=== PATIENT | male | born 1940 | race Hispanic/Latino ===

== ENCOUNTER 2018-04-20 21:08 | Inpatient (IN) | payer MEDICARE ==
[~2018-04-20] VITALS: Ht 172.7 cm; Wt 127.1 kg
[2018-04-20 21:55] LABS: BASOPHILS % (AUTO) 1.3 % (0.0-5.0); HEMATOCRIT 45.7 % (42-54); LYMPHOCYTES % (AUTO) 16.9 % (21.0-51.0); MEAN CORPUSCULAR HEMOGLOBIN 32.3 pg (27.0-33.0); MEAN CORPUSCULAR VOLUME 95.1 fL (79-99); MONOCYTES % (AUTO) 6.2 % (3.0-13.0); NEUTROPHILS % (AUTO) 74.6 % (40.0-77.0); PLATELET COUNT (AUTO) 154 K/uL (130-400); RED CELL DISTRIBUTION WIDTH 14.6 % (11.0-15.5)
[2018-04-20 22:08] LABS: INR 0.95 (0.85-1.15); PARTIAL THROMBOPLASTIN TIME 26.3 SEC (26.3-35.5)
[2018-04-20 22:10] LABS: CREATINE KINASE, TOTAL 97 U/L (21-232); LIPASE 110 U/L (114-286)
[2018-04-20 22:21] LABS: CRP QUANTITATIVE < 2.00 mg/L (0.00-9.0)
[2018-04-20 22:33] LABS: B-TYPE NATRIURETIC PEPTIDE 15 pg/mL (0-100)
[2018-04-20 23:11] LABS: ERYTHROCYTE SEDIMENTATION RATE 5 MM/HR (0-20)
[2018-04-20] MEDS ORDERED: MORPHINE SULFATE 2 MG/ML 1ML SYG IV PRN (23:30)
[2018-04-20] MEDS ORDERED: ACETAMINOPHEN 325 MG TAB PO PRN (23:30)
[2018-04-20] MEDS ORDERED: ONDANSETRON HCL 4 MG/2 ML VIAL IV PRN (23:30)
[2018-04-21] VITALS (8 sets, daily range): BP systolic 127–149; BP diastolic 59–71
--- NOTE | 2018-04-21 07:33 | NUR ---
ER ADMIT PATIENT RECEIVED FROM ER VIA STRETCHER WITH FAMILY PRESENT. NO OBVIOUS SIGNS OF DISTRESS NOTED. DENIES DIZZINESS OR LIGHTHEADEDNESS. ORIENTED TO ROOM AND USE OF CALL LIGHT. BED IS IN LOWEST POSITION AND LOCKED. IV IS PATENT AND FLUSHING WELL. WILL PLACE ON RESIDENTIAL INSTALLER ORDERED.
[2018-04-21] MEDS: FAMOTIDINE/PF 20 MG/2 ML VIAL IV SCH ×2 (08:27→20:25)
--- NOTE | 2018-04-21 11:30 | NUR ---
TO MRI PATIENT TRANSPORTED TO MRI VIA WHEELCHAIR IN STABLE CONDITION.
--- NOTE | 2018-04-21 12:00 | NUR ---
BACK FROM MRI PATIENT RETURNED FROM MRI VIA WHEELCHAIR IN STABLE CONDITION. DR. BIMAL SMITH HERE TO SEE PATIENT.
[2018-04-21] MEDS ORDERED: METF-444 PO (17:05)
[2018-04-21] MEDS ORDERED: PRAV20TA4 PO (18:06)
[2018-04-21] MEDS: ATORVASTATIN CALCIUM 10 MG TABLET PO SCH (20:25)
[2018-04-21] MEDS: INSULIN HUMULIN R 100 UNIT/ML 3ML SQ SCH (20:25)
[2018-04-22 04:00] VITALS: BP 136/72
[2018-04-22 06:08] LABS: BASOPHILS % (AUTO) 0.7 % (0.0-5.0); HEMATOCRIT 43.8 % (42-54); LYMPHOCYTES % (AUTO) 32.4 % (21.0-51.0); MEAN CORPUSCULAR HEMOGLOBIN 32.4 pg (27.0-33.0); MEAN CORPUSCULAR HGB CONC 34.2 g/dL (32.0-36.0); MEAN CORPUSCULAR VOLUME 94.5 fL (79-99); MONOCYTES % (AUTO) 7.5 % (3.0-13.0); NEUTROPHILS % (AUTO) 58.4 % (40.0-77.0); PLATELET COUNT (AUTO) 155 K/uL (130-400); RED BLOOD CELL COUNT(AUTO) 4.63 MIL/uL (4.50-6.20); RED CELL DISTRIBUTION WIDTH 14.5 % (11.0-15.5); WHITE BLOOD COUNT (AUTO) 5.8 K/uL (4.8-10.8)
[2018-04-22 06:13] LABS: CREATININE 0.7 mg/dL (0.5-1.5)
[2018-04-22] MEDS: INSULIN HUMULIN R 100 UNIT/ML 3ML SQ SCH ×4 (06:34→21:00)
[2018-04-22 07:30] VITALS: BP 120/61
[2018-04-22] MEDS ORDERED: REGADENOSON 0.4 MG/5 ML PF SYG IVP SCH (07:30)
[2018-04-22] MEDS: FAMOTIDINE/PF 20 MG/2 ML VIAL IV SCH ×2 (08:44→22:07)
--- NOTE | 2018-04-22 10:00 | NUR ---
HOSPITALIST DR. TELLO IN TO SEE PATIENT. NEW ORDERS RECEIVED.
[2018-04-22 11:34] VITALS: BP 148/76
--- NOTE | 2018-04-22 12:39 | NUR ---
TO [facility]LE[facility]IC[facility] PATIENT TRANSPORTED TO ID FOR [facility]ISC[facility] VIA WHEELCHAIR IN STABLE CONDITION.
--- NOTE | 2018-04-22 13:51 | NUR ---
INITIAL: Met with pt and son Oj Ca this afternoon to discuss dcp. Pt sleeping and son answering questions. Prior to admission pt's 23yo grandson and 19yo granddtr were living w him. Pt is independent w ambulation and ADLs. Drives where needed. He does not have any DME or receive prior services. DCP is for pt to return back home. Will continue to follow and wait for Md recommendations. Addendum: 04/22/18 at 1355 by CARA TABARES CM Amended: Links added.
--- NOTE | 2018-04-22 14:25 | NUR ---
BACK FROM NE PATIENT RETURNED FROM NE S/P LEXISCAN STRESS TEST. HE IS IN STABLE CONDITION.
[2018-04-22 16:34] VITALS: BP 164/63
[2018-04-22 19:39] VITALS: BP 122/58
[2018-04-22] MEDS: ATORVASTATIN CALCIUM 10 MG TABLET PO SCH (22:07)
[2018-04-23] VITALS (12 sets, daily range): BP systolic 120–154; BP diastolic 56–84
[2018-04-23 05:52] LABS: HEMATOCRIT 48.2 % (42-54); MEAN CORPUSCULAR HEMOGLOBIN 31.5 pg (27.0-33.0); MEAN CORPUSCULAR HGB CONC 33.2 g/dL (32.0-36.0); MEAN CORPUSCULAR VOLUME 94.8 fL (79-99); NUCLEATED RED BLOOD CELLS 0.1 % (0.0-0.19); PLATELET COUNT (AUTO) 165 K/uL (130-400); RED BLOOD CELL COUNT(AUTO) 5.09 MIL/uL (4.50-6.20); RED CELL DISTRIBUTION WIDTH 14.6 % (11.0-15.5); WHITE BLOOD COUNT (AUTO) 7.2 K/uL (4.8-10.8)
[2018-04-23 06:00] LABS: INR 0.96 (0.85-1.15); PARTIAL THROMBOPLASTIN TIME 28.7 SEC (26.3-35.5); PROTHROMBIN TIME 10.1 SEC (9.6-11.6)
[2018-04-23 06:14] LABS: ALBUMIN 3.7 g/dL (3.5-5.0); BILIRUBIN,TOTAL 0.8 mg/dL (0.2-1.0); CREATININE 0.9 mg/dL (0.5-1.5); MAGNESIUM 1.9 mg/dL (1.80-2.40); POTASSIUM 3.6 mmol/L (3.5-5.1); TOTAL PROTEIN, SERUM 7.8 g/dL (6.0-8.3)
[2018-04-23] MEDS: INSULIN HUMULIN R 100 UNIT/ML 3ML SQ SCH (06:23)
[2018-04-23] MEDS ORDERED: LIDOCAINE HCL 2% 20ML ONE (07:58)
[2018-04-23] MEDS ORDERED: NITROGLYCERIN 5 MG/ML 10 ML VIAL IV ONE (07:58)
[2018-04-23] MEDS ORDERED: IOHEXOL-350 50ML VIAL IV ONE (07:58)
[2018-04-23] MEDS ORDERED: IOHEXOL 350 MG/ML 100ML INFUS..BTL IV ONE (08:01)
--- NOTE | 2018-04-23 08:15 | NUR ---
Pr. taken to lab clerk for left heart cath with Dr. Kaye, pt. left in stable condition via hospital bed.
[2018-04-23] MEDS ORDERED: MIDAZOLAM HCL 1 MG/ML 2ML VIAL ONE (08:48)
[2018-04-23] MEDS ORDERED: FENTANYL CITRATE PF 50 MCG/1 ML 2ML VIAL ONE (08:48)
[2018-04-23] MEDS ORDERED: SODIUM CHLORIDE 0.9% 1000ML 1,000 ML IV SCH (09:25)
--- NOTE | 2018-04-23 10:00 | NUR ---
Pt. back from heart cath in stable condition, D-stat to right groin dry and intact, site soft, pedal pulse positive with doppler. Inst. to lay flat for [address] Kaye came to to see pt and gave results to pt's dtr. stated if all is ok pt. can be discharged after 3pm today from his standpoint. F/U in 2-4 weeks.
[2018-04-23] MEDS: FAMOTIDINE/PF 20 MG/2 ML VIAL IV SCH (10:07)
== END 2018-04-23 16:44 | disposition home or self-care (01) | DRG 287 ==
LOC: EDH 21:08 → EDHIP 23:00 → OBSVTOIN 23:00 → 4AH 04-21 07:08
PROVIDERS: ADMIT Internal Medicine; ATTEND Internal Medicine
PROC: 4A023N7 Measurement of Cardiac Sampling and Pressure, Left Heart, Percutaneous Approach (ICD-10-PCS; principal; 2018-04-23)
PROC: B2111ZZ Fluoroscopy of Multiple Coronary Arteries using Low Osmolar Contrast (ICD-10-PCS; 2018-04-23)
PROC: B2151ZZ Fluoroscopy of Left Heart using Low Osmolar Contrast (ICD-10-PCS; 2018-04-23)
DX: R00.1 Bradycardia, unspecified (principal); Z68.41 Body mass index [BMI] 40.0-44.9, adult; I65.23 Occlusion and stenosis of bilateral carotid arteries; E66.01 Morbid (severe) obesity due to excess calories; I10 Essential (primary) hypertension; F17.210 Nicotine dependence, cigarettes, uncomplicated; E78.5 Hyperlipidemia, unspecified; E11.9 Type 2 diabetes mellitus without complications
CPT/HCPCS: 36415; 70450; 70547; 70551; 71045; 72125; 78452; 80048; 80053; 82550; 82948; 83690; 83735; 83880; 84443; 84484; 85025; 85027; 85610; 85651; 85730; 86140; 93005; 93017; 93306; 93458; 93880; 96374; 99156; 99157; 99291; A9500; C1894; G0378; J1644; J1815; J2250; J2785; J3010; J3490; Q9967

== ENCOUNTER 2019-04-21 22:12 | Emergency (ER) | payer MEDICARE ==
[~2019-04-21 22:12] MED LIST: METF-444 PO; PRAV20TA4 PO
[2019-04-21] MEDS ORDERED: ALBUTEROL SULFATE 0.083% 2.5 MG/3 ML INH IH ONE (23:57)
[2019-04-22] MEDS ORDERED: SODIUM CHLORIDE 0.9% 500ML 500 ML IV ONE (00:03)
[2019-04-22] MEDS ORDERED: LIDOCAINE HCL 2% VISCOUS 15 ML UDCUP ONE (00:05)
[2019-04-22] MEDS ORDERED: MAG HYDROX/AL HYDROX/SIMETH ES 30 ML SUSP UDCUP ONE (00:06)
[2019-04-22 00:12] LABS: BASOPHILS % (AUTO) 0.5 % (0.0-5.0); EOSINOPHILS % (AUTO) 0.2 % (0.0-8.0); HEMATOCRIT 45.1 % (42-54); LYMPHOCYTES % (AUTO) 14.3 % (21.0-51.0); MEAN CORPUSCULAR HEMOGLOBIN 31.3 pg (27.0-33.0); MEAN CORPUSCULAR HGB CONC 32.2 g/dL (32.0-36.0); MEAN CORPUSCULAR VOLUME 97.2 fL (79-99); MONOCYTES % (AUTO) 8.6 % (3.0-13.0); NEUTROPHILS % (AUTO) 76.1 % (40.0-77.0); PLATELET COUNT (AUTO) 153 K/uL (130-400); RED BLOOD CELL COUNT(AUTO) 4.64 MIL/uL (4.50-6.20); RED CELL DISTRIBUTION WIDTH 14.2 % (11.0-15.5); WHITE BLOOD COUNT (AUTO) 10.3 K/uL (4.8-10.8)
[2019-04-22 00:27] LABS: CREATININE 0.8 mg/dL (0.5-1.5); POTASSIUM 4.4 mmol/L (3.5-5.1)
[2019-04-22 00:35] LABS: ALBUMIN 3.1 g/dL (3.5-5.0); BILIRUBIN,TOTAL 0.6 mg/dL (0.2-1.0); TOTAL PROTEIN, SERUM 7.3 g/dL (6.0-8.3)
[2019-04-22 00:36] LABS: B-TYPE NATRIURETIC PEPTIDE 46 pg/mL (0-100)
[2019-04-22] MEDS ORDERED: PREDNISONE 20 MG TABLET ONE (01:31)
[2019-04-22] MEDS ORDERED: AZITHROMYCIN 250 MG TABLET PO ONE (01:32)
== END 2019-04-22 01:45 | disposition home or self-care (01) ==
LOC: EDH 22:12
DX: S20.219A Contusion of unspecified front wall of thorax, initial encounter (principal); J20.9 Acute bronchitis, unspecified; S40.812A Abrasion of left upper arm, initial encounter; W18.39XA Other fall on same level, initial encounter; Y93.01 Activity, walking, marching and hiking; Y92.89 Other specified places as the place of occurrence of the external cause; Y99.8 Other external cause status
CPT/HCPCS: 36415; 71046; 71100; 80053; 83880; 84484; 85025; 87804 ×2; 93005; 94640; 99285; J7040; 71101